=== PATIENT | female | born 1975 | race Hispanic/Latino ===

== ENCOUNTER → 2024-02-16 | Day surgery (SDC) | payer OTHER ==
[~2024-02-16] MED LIST: CRESTOR40 MG PO; FENTANYL CITRATE/PF 100MCG/2 ML INJ ONE; HYOSCYAMINE SULFATE 0.5 MG/ML INJ ONE; LACTATED RINGER'S 1,000 ML ONE; MAGNESIUM OXID400 MG PO; PROPOFOL IV EMULSION 10 MG/ML 20 ML VIAL ONE
[2024-02-16 14:00] VITALS: BP 128/84; PULSE 74; RESP 18; TEMP 98.2; O2SAT 97
== END | disposition home or self-care (01) ==
LOC: OR 10:51
PROVIDERS: ATTEND Internal Medicine Gastroenterology
DX: Z12.11 Encounter for screening for malignant neoplasm of colon (principal); K63.5 Polyp of colon; K57.30 Diverticulosis of large intestine without perforation or abscess without bleeding; K64.8 Other hemorrhoids; E78.5 Hyperlipidemia, unspecified; E55.9 Vitamin D deficiency, unspecified; E66.9 Obesity, unspecified; Z68.33 Body mass index [BMI] 33.0-33.9, adult; F41.9 Anxiety disorder, unspecified; M19.91 Primary osteoarthritis, unspecified site; R00.1 Bradycardia, unspecified; Z01.810 Encounter for preprocedural cardiovascular examination; Z79.899 Other long term (current) drug therapy
CPT/HCPCS: 45385; 93005; J1980; J2704; J3010; J7121; 45378